=== PATIENT | female | born 1975 | race Caucasian/White ===

== ENCOUNTER 2018-11-28 21:01 | Emergency (ER) | payer OTHER ==
[~2018-11-28] VITALS: Ht 165.1 cm; Wt 96.6 kg
[~2018-11-28 21:01] MED LIST: ACETAMINOPHEN-1 EAC1 PO; AFRIN15 ML NS; AMOXICILLIN875 MG PO; ATACAND HCT 161 EACH PO; BACTRIM DS TAB1 EACH PO; CADUET 2.5 MG PO; CARISOPRODOL 3350 MG PO; CARVEDILOL12.5 MG PO; CELEBREX 200 M200 M1; FLAGYL500 MG PO; FLEXERIL; FLEXERIL PO; HCTZ; HYDROCHLOROTHIA25 M2 PO; HYDROCODONE-AP1 EAC6 PO; HYDROCODONE-APA1 TA1 PO; IBUPROFEN 800800 MG PO; LEXAPRO 10 MG T10 MG; LEXAPRO20 MG; LEXAPRO20 MG PO; MEDROLDOSEPACK PO; MELATONIN3 MG PO; MELATONIN5 M1 PO; NAPROSYN500 M1 PO; NORCO 5-325 TA1 EACH PO; PERCOCET 5-3251 EACH PO; POTASSIUM20; POTASSIUM20 PO; PROMETHAZINE-D120 ML PO; PROZAC 10 MG CA10 M1 PO; ROBAXIN 750 MG750 M1 PO; SKELAXIN 800 M800 M1; TOPAMAX50 MG PO; TOPROL XL200 MG; TOPROL XL25 MG PO; TRAMADOL 50 MG50 MG; TRAMADOL 50 MG50 MG PO; ULTRACET TABLE1 EACH PO; VICODIN 5-5001 EACH PO; VITAMIN D400 UNI1 PO; VYTORIN 10-201 EACH; ZOLOFT; ZOLOFT50 MG PO
[2018-11-28 21:23] VITALS: BP 185/90
[2018-11-28] MEDS ORDERED: WELLBUTRIN 75 M75 M1 PO (21:25)
[2018-11-28] MEDS ORDERED: ULTRAM 50MG TAB50 MG PO (21:26)
[2018-11-28] MEDS ORDERED: AMOXICILLIN 50500 MG PO (21:26)
== END 2018-11-28 21:28 | disposition home or self-care (01) ==
LOC: M.ERS 21:01
DX: S02.5XXA Fracture of tooth (traumatic), initial encounter for closed fracture (principal); F17.210 Nicotine dependence, cigarettes, uncomplicated; I10 Essential (primary) hypertension; Z88.6 Allergy status to analgesic agent; Z88.8 Allergy status to other drugs, medicaments and biological substances; Z86.718 Personal history of other venous thrombosis and embolism; X58.XXXA Exposure to other specified factors, initial encounter; Y92.89 Other specified places as the place of occurrence of the external cause; Y93.89 Activity, other specified; Y99.8 Other external cause status

== ENCOUNTER 2019-01-19 00:15 | Emergency (ER) | payer OTHER ==
[~2019-01-19] VITALS: Ht 167.6 cm; Wt 98.4 kg
[~2019-01-19 00:15] MED LIST changes: +AMOXICILLIN 50500 MG PO; +ULTRAM 50MG TAB50 MG PO; +WELLBUTRIN 75 M75 M1 PO
[2019-01-19] MEDS ORDERED: COREG25 M1 PO (00:23)
[2019-01-19] MEDS ORDERED: AMOXICILLIN 50500 MG PO (00:31)
[2019-01-19] MEDS ORDERED: ULTRAM 50MG TAB50 MG PO (00:31)
[2019-01-19 00:45] VITALS: BP 176/81
== END 2019-01-19 00:46 | disposition home or self-care (01) ==
LOC: M.ERS 00:15
DX: K02.9 Dental caries, unspecified (principal); I10 Essential (primary) hypertension; F17.210 Nicotine dependence, cigarettes, uncomplicated; Z88.6 Allergy status to analgesic agent; Z88.8 Allergy status to other drugs, medicaments and biological substances

== ENCOUNTER 2019-01-25 11:56 | Emergency (ER) | payer OTHER ==
[~2019-01-25] VITALS: Ht 167.6 cm; Wt 93.9 kg
[~2019-01-25 11:56] MED LIST changes: +COREG25 M1 PO
[2019-01-25] MEDS ORDERED: ULTRAM 50MG TAB50 MG PO (12:26)
[2019-01-25 12:55] VITALS: BP 171/94
== END 2019-01-25 12:56 | disposition home or self-care (01) ==
LOC: M.ERS 11:56
DX: K02.9 Dental caries, unspecified (principal); I10 Essential (primary) hypertension; F17.210 Nicotine dependence, cigarettes, uncomplicated; Z86.718 Personal history of other venous thrombosis and embolism; Z98.890 Other specified postprocedural states; Z88.6 Allergy status to analgesic agent; Z88.8 Allergy status to other drugs, medicaments and biological substances

== ENCOUNTER 2019-06-01 23:21 | Emergency (ER) | payer OTHER ==
[~2019-06-01] VITALS: Ht 167.6 cm; Wt 98.9 kg
[2019-06-01] MEDS ORDERED: NORVASC5 MG PO (23:35)
[2019-06-01] MEDS ORDERED: COREG25 MG PO (23:35)
[2019-06-01] MEDS ORDERED: WELLBUTRIN 100100 MG PO (23:35)
[2019-06-02 00:35] VITALS: BP 181/106
== END 2019-06-02 00:35 | disposition home or self-care (01) ==
LOC: M.ERS 23:21
DX: T25.121A Burn of first degree of right foot, initial encounter (principal); T25.132A Burn of first degree of left toe(s) (nail), initial encounter; T31.0 Burns involving less than 10% of body surface; F17.210 Nicotine dependence, cigarettes, uncomplicated; I10 Essential (primary) hypertension; Z86.718 Personal history of other venous thrombosis and embolism; Z88.6 Allergy status to analgesic agent; Z88.8 Allergy status to other drugs, medicaments and biological substances; X12.XXXA Contact with other hot fluids, initial encounter; Y93.89 Activity, other specified; Y92.89 Other specified places as the place of occurrence of the external cause; Y99.8 Other external cause status

== ENCOUNTER 2020-07-11 20:50 | Emergency (ER) | payer OTHER ==
[~2020-07-11] VITALS: Ht 165.1 cm; Wt 99.8 kg
[~2020-07-11 20:50] MED LIST changes: +COREG25 MG PO; +NORVASC5 MG PO; +WELLBUTRIN 100100 MG PO
[2020-07-11] MEDS ORDERED: EFFER-K 20 MEQ20 ME1 PO (21:00)
[2020-07-11] MEDS ORDERED: LEXAPRO20 MG PO (21:00)
[2020-07-11] MEDS ORDERED: MEDROLDOSEPACK PO (21:01)
[2020-07-11] MEDS ORDERED: TRAMADOL 50 MG50 MG PO (21:01)
[2020-07-11] MEDS ORDERED: NORCO 5-325 TA1 EAC2 PO (21:54)
[2020-07-11 22:17] VITALS: BP 168/85
== END 2020-07-11 22:18 | disposition home or self-care (01) ==
LOC: M.ERS 20:50
DX: M25.512 Pain in left shoulder (principal); I10 Essential (primary) hypertension; F17.210 Nicotine dependence, cigarettes, uncomplicated; Z88.8 Allergy status to other drugs, medicaments and biological substances; Z98.51 Tubal ligation status; Z86.718 Personal history of other venous thrombosis and embolism; Z79.899 Other long term (current) drug therapy; Z88.6 Allergy status to analgesic agent; X50.1XXA Overexertion from prolonged static or awkward postures, initial encounter; Y93.89 Activity, other specified; Y92.89 Other specified places as the place of occurrence of the external cause; Y99.8 Other external cause status